=== PATIENT | female | born 1980 | race African-American/Black ===

== ENCOUNTER 2022-06-21 14:09 | Emergency (ER) | payer SELFPAY ==
[~2022-06-21] VITALS: Ht 165.1 cm; Wt 75.0 kg
[2022-06-21] MEDS ORDERED: LORAZEPAM 1MG TABLET PO ONE (16:00)
[2022-06-21 16:07] VITALS: BP 176/114
== END 2022-06-21 18:07 | disposition left against medical advice (07) ==
LOC: ER 14:09
DX: T65.291A Toxic effect of other tobacco and nicotine, accidental (unintentional), initial encounter (principal); U07.0 Vaping-related disorder; F41.8 Other specified anxiety disorders; R00.2 Palpitations; Y92.810 Car as the place of occurrence of the external cause
CPT/HCPCS: 99283